=== PATIENT | male | born 1995 | race Caucasian/White ===

== ENCOUNTER 2018-08-04 10:41 | Emergency (ER) | payer OTHER ==
[~2018-08-04] VITALS: Ht 182.9 cm; Wt 131.8 kg
[2018-08-04] MEDS ORDERED: IBUP-2354 PO (10:47)
[2018-08-04] MEDS ORDERED: DEXAMETHASONE SOD PHOS 4 MG/ML 5 ML VIAL IM ONE (11:30)
[2018-08-04 11:42] VITALS: BP 133/70
== END 2018-08-04 12:04 | disposition home or self-care (01) ==
LOC: EMS 10:42
DX: J02.9 Acute pharyngitis, unspecified (principal); R03.0 Elevated blood-pressure reading, without diagnosis of hypertension; J45.909 Unspecified asthma, uncomplicated; Z79.899 Other long term (current) drug therapy
CPT/HCPCS: 96372; 99283; J1100

== ENCOUNTER 2021-05-01 08:05 | Emergency (ER) | payer OTHER ==
[~2021-05-01] VITALS: Ht 185.4 cm; Wt 127.3 kg
[~2021-05-01 08:05] MED LIST: IBUP-2759 PO
[2021-05-01 08:09] VITALS: BP 159/98
[2021-05-01] MEDS ORDERED: DOXYCYCLINE HYCLATE 100 MG TABLET PO ONE (08:30)
== END 2021-05-01 08:57 | disposition home or self-care (01) ==
LOC: EMS 08:09
DX: L02.211 Cutaneous abscess of abdominal wall (principal); L03.311 Cellulitis of abdominal wall
CPT/HCPCS: 99284; Z7502; Z7610

== ENCOUNTER 2022-03-21 17:24 | Emergency (ER) | payer OTHER ==
[~2022-03-21] VITALS: Ht 185.4 cm; Wt 140.9 kg
[~2022-03-21 17:24] MED LIST changes: +AMOX1TAB15 PO; +HYDR-4723 PO
[2022-03-21 17:25] VITALS: BP_DIAS 94
[2022-03-21] MEDS ORDERED: MUPI15CR12 TP (18:17)
[2022-03-21 18:40] VITALS: BP_SYST 141
== END 2022-03-21 20:32 | disposition home or self-care (01) ==
LOC: EMS 17:26
DX: L60.0 Ingrowing nail (principal); F10.20 Alcohol dependence, uncomplicated; J45.909 Unspecified asthma, uncomplicated
CPT/HCPCS: 99283; Z7502